=== PATIENT | male | born 1985 | race Two or more races ===

== ENCOUNTER 2022-11-27 14:59 | Emergency (ER) | payer OTHER ==
[2022-11-27 15:19] VITALS: BP 150/90
--- NOTE | 2022-11-27 15:49 | ED Physician Documentation ---
PD HPI LOWER EXT INJURY - Stated complaint Stated Complaint: LT LEG SWELLING - Chief complaint Chief Complaint: Ext Problem - History obtained from History obtained from: Patient - Additional information Additional information: He has a recurrent issue with his left knee/leg where get swollen. It causes limited range of motion and pain. Current issues been going on for about 2 days with swelling of the knee and pain in the upper calf and lower thigh. There is no specific injury. PD PAST MEDICAL HISTORY - Allergies Allergies/Adverse Reactions: Allergies Allergy/AdvReac Type Severity Reaction Status Date / Time No Known Drug Allergies Allergy Verified 11/27/22 15:08 PD ED PE NORMAL - Vitals Vital signs reviewed: Yes - General General: Alert and oriented X 3, No acute distress - Extremities Extremities: Other (There is a large effusion of the left knee with limited range of motion due to same. No warmth or redness. No tenderness of the knee. He does have some upper calf and lower posterior thigh tenderness as well.) - Neuro Neuro: Alert and oriented X 3, Normal speech Results - Vitals Vitals: Vital Signs - 24 hr 11/27/22 15:08 Temperature 36.9 C Heart Rate 100 Respiratory 16 Rate Blood Pressure 150/90 H O2 Saturation 98 Oxygen O2 Source Room air - Rads (name of study) Left leg duplex ultrasound is negative for DVT per the RDMS. Relevant Findings:: Prelim report reviewed 4 view x-ray of the left knee demonstrates a moderate effusion Relevant Findings:: Final report received, EMP independent interpretation of test PD Medical Decision Making - ED course ED course: Seems like a functional effusion of the left knee, that said the tenderness is a little outside of the range that I would consider normal for that so we will also consider DVT and do an ultrasound for same. Subsequently diagnostic testing demonstrated an effusion, but no DVT. There is no evidence of infection. Discussed conservative care and follow-up with flight surgeon for consideration for orthopedics referral. Also return precautions. Departure - Departure Disposition: 01 Home, Self Care Clinical Impression: Knee effusion, left Pain of lower extremity Qualifiers: Laterality: left Qualified Code(s): M79.605 - Pain in left leg Condition: Good Record reviewed to determine appropriate education?: Yes Instructions: ED Effusion Knee Comments: You have an effusion/water on the left knee joint, that is what is causing your pain. Ibuprofen as needed for pain and generally rest for the next few days. Follow- up with your flight surgeon, next available appointment. Return for new or worsening symptoms. Forms: Activity restrictions Discharge Date/Time: 11/27/22 16:41
--- NOTE | 2022-11-27 16:39 | XRAY Report ---
PROCEDURE: Knee 4 View LT INDICATIONS: knee/leg pain TECHNIQUE: 4 views of the left knee(s) were acquired. COMPARISON: None. FINDINGS: Bones: No fractures or dislocations. No patella subluxation. No suspicious bony lesions. Soft tissues: Moderate knee joint effusion. No suspicious soft tissue calcifications or masses. IMPRESSION: No acute left knee fracture or dislocation. Moderate suprapatellar joint effusion. Reviewed by: Bradley Coleman MD on 11/27/2022 4:37 PM PDT Approved by: Bradley Coleman MD on 11/27/2022 4:37 PM PDT Station ID: [id number]
--- NOTE | 2022-11-27 16:39 | Ultrasound Report ---
PROCEDURE: Duplex Ext Veins Left INDICATIONS: knee/leg pain TECHNIQUE: Real-time imaging, as well as color and pulse Doppler interrogation, were performed of the lower extr emity deep veins from the inguinal ligament to the popliteal fossa. COMPARISON: None. FINDINGS: The deep veins are normally compressible, and free of intraluminal thrombus. Color and pu lse Doppler demonstrate normal phasic intraluminal flow. There is normal augmentation response to di stal compression maneuver. IMPRESSION: No evidence of DVT in visualized left lower extremity veins. Reviewed by: Bradley Coleman MD on 11/27/2022 4:38 PM PDT Approved by: Bradley Coleman MD on 11/27/2022 4:38 PM PDT Station ID: [id number]
== END 2022-11-27 16:41 | disposition home or self-care (01) ==
LOC: ED 14:59
DX: M25.462 Effusion, left knee (principal)
CPT/HCPCS: 99283; 99284

== ENCOUNTER 2023-07-18 13:45 | Outpatient (CLI) | payer OTHER ==
--- NOTE | 2023-07-18 15:42 | XRAY Report ---
PROCEDURE: Foot 3+V RT INDICATIONS: PAIN IN RIGHT FOOT TECHNIQUE: 3 views of the foot were acquired. COMPARISON: None. FINDINGS: Bones: No fractures or dislocations. No suspicious bony lesions. Mild posterior calcaneal spurring . Soft tissues: No tibiotalar joint effusion. Achilles tendon appears normal. IMPRESSION: No acute bony abnormality. Reviewed by: Bernardo Snyder MD on 07/18/2023 3:41 PM PDT Approved by: Bernardo Snyder MD on 07/18/2023 3:41 PM PDT Station ID: [id number]
== END 2023-07-18 14:00 | disposition home or self-care (01) ==
LOC: DI.N 13:45
PROVIDERS: ATTEND Physician Assistant Medical
DX: M79.671 Pain in right foot (principal)